=== PATIENT | female | born 1970 | race Caucasian/White ===

== ENCOUNTER → 2018-08-16 14:37 | Outpatient (CLI) | payer OTHER, SELFPAY ==
[2018-08-20 13:45] LABS: HPV Reflexed? NOT INDICATED
== END ==
PROVIDERS: Visit Provider Obstetrics & Gynecology
DX: Z12.4 Encounter for screening for malignant neoplasm of cervix (principal)
CPT/HCPCS: 88175; G0145

== ENCOUNTER → 2018-10-11 08:15 | Outpatient (CLI) | payer OTHER, SELFPAY ==
--- NOTE | 2018-10-11 08:17 | BI_ITS ---
MAMMOGRAPHY - BILATERAL SCREENING REASON FOR EXAM: Female, 48 years old. Routine annual screening examination. PERTINENT HISTORY: Non-contributory. Remote right stereotactic breast biopsy. TECHNIQUE: Digital bilateral breast anoop (3D mammographic acquisition) in the CC and MLO projections. 2-D mediolateral oblique (MLO) and craniocaudad (CC) views of both breasts were obtained. CAD: Full Field Digital Mammography with Computer Added Detection was performed. COMPARISON: Comparison is made with prior outside examination dated September 15, 2016. FINDINGS: Breast Composition: The breasts are heterogeneously dense, which may obscure small masses. There are no dominant masses or suspicious calcifications. A tissue clip marker is seen in the upper lateral portion of the right breast. Stable appearance of the small bilateral axillary lymph nodes. No other significant abnormalities are identified. There has been no significant change since the prior study. BI/SCREENING MAMM (CAD), BILAT IMPRESSION: Stable bilateral screening mammogram. Yearly follow-up mammogram recommended. (A) ASSESSMENT CATEGORY: BIRADS Category 2: Benign. A letter regarding these results will be sent to the patient by the facility within 30 days. Approximately 10% of breast cancers are not detected by mammography. A normal mammogram should not delay biopsy of a clinically suspicious abnormality. [id number] Electronically Signed: Rip Cummings MD at 11:17 EST Tel [phone], Service support ,
== END ==
PROVIDERS: Referring Provider Obstetrics & Gynecology; Visit Provider Obstetrics & Gynecology
DX: Z12.31 Encounter for screening mammogram for malignant neoplasm of breast (principal)
CPT/HCPCS: 77063; 77067

== ENCOUNTER → 2019-11-07 07:37 | Outpatient (CLI) | payer SELFPAY ==
--- NOTE | 2019-11-07 07:41 | BI_ITS ---
MAMMOGRAPHY - BILATERAL SCREENING REASON FOR EXAM: Female, 49 years old. Routine annual screening examination. PERTINENT HISTORY: Non-contributory. Remote right stereotactic breast biopsy. TECHNIQUE: Digital bilateral breast dahlia (3D mammographic acquisition) in the CC and MLO projections. 2-D mediolateral oblique (MLO) and craniocaudad (CC) views of both breasts were obtained. CAD: Full Field Digital Mammography with Computer Added Detection was performed. COMPARISON: Comparison is made with prior examination dated October 11, 2018. FINDINGS: Breast Composition: The breasts are heterogeneously dense, which may obscure small masses. There are no dominant masses or suspicious calcifications. A tissue clip marker is once again seen in the upper lateral aspect of the right breast. Stable small benign-appearing bilateral axillary lymph nodes. No other significant abnormalities are identified. There has been no significant change since the prior study. BI/SCREEN MAMM (CAD) W/DAHLIA BILAT IMPRESSION: Stable bilateral screening mammogram. Yearly follow-up mammogram recommended. (A) ASSESSMENT CATEGORY: BIRADS Category 2: Benign. A letter regarding these results will be sent to the patient by the facility within 30 days. Approximately 10% of breast cancers are not detected by mammography. A normal mammogram should not delay biopsy of a clinically suspicious abnormality. [id number] Electronically Signed: Rip Cummings, at 9:29 EST , Service support ,
== END ==
PROVIDERS: Referring Provider Obstetrics & Gynecology; Visit Provider Obstetrics & Gynecology
DX: Z12.31 Encounter for screening mammogram for malignant neoplasm of breast (principal)
CPT/HCPCS: 77063; 77067

== ENCOUNTER → 2023-01-05 | Outpatient (CLI) | payer OTHER, SELFPAY ==
[2023-01-11 14:39] LABS: HPV APTIMA, High Risk Negative (Negative)
== END | disposition home or self-care (01) ==
PROVIDERS: Visit Provider Nurse Practitioner Women's Health
DX: Z01.419 Encounter for gynecological examination (general) (routine) without abnormal findings (principal)
CPT/HCPCS: 87624; 88175; G0145

== ENCOUNTER → 2023-02-02 | Outpatient (CLI) | payer OTHER, SELFPAY ==
--- NOTE | 2023-02-02 08:28 | BI_ITS ---
MAMMOGRAPHY - BILATERAL SCREENING REASON FOR EXAM: Female, 52 years old. Routine annual screening examination. PERTINENT HISTORY: Non-contributory. Remote right stereotactic breast biopsy. TECHNIQUE: Digital bilateral breast dahlia (3D mammographic acquisition) in the CC and MLO projections. 2-D mediolateral oblique (MLO) and craniocaudad (CC) views of both breasts were obtained. CAD: Full Field Digital Mammography with Computer Added Detection was performed. COMPARISON: Comparison is made with prior study dated November 07, 2019 and October 11, 2018. FINDINGS: Breast Composition: The breasts are heterogeneously dense, which may obscure small masses. There are no dominant masses or suspicious calcifications. A tissue clip marker is once again seen in the upper lateral aspect of the right breast. Stable appearance of the bilateral axillary lymph nodes. No other significant abnormalities are identified. There has been no significant change since the prior study. BI/SCRN MAMM (CAD)W/DAHLIA BILAT IMPRESSION: Stable bilateral screening mammogram. Yearly follow-up mammogram recommended. (A) ASSESSMENT CATEGORY: BIRADS Category 2: Benign. A letter regarding these results will be sent to the patient by the facility within 30 days. Approximately 10% of breast cancers are not detected by mammography. A normal mammogram should not delay biopsy of a clinically suspicious abnormality. [id number] Electronically Signed: Rip Cummings MD at 9:31 EDT ,
== END | disposition home or self-care (01) ==
LOC: OPBI 08:26
PROVIDERS: Referring Provider Nurse Practitioner Women's Health; Visit Provider Nurse Practitioner Women's Health
DX: Z12.31 Encounter for screening mammogram for malignant neoplasm of breast (principal)
CPT/HCPCS: 77063; 77067

== ENCOUNTER 2023-02-23 07:57 | Day surgery (SDC) | payer OTHER, SELFPAY ==
[2023-02-23] VITALS (9 sets, daily range): BP systolic 88–124; BP diastolic 36–63; PULSE 53–68; RESP 16; TEMP 35.8–36.8; O2SAT 97–100; BMI 37.8
[2023-02-23] MEDS: Lactated Ringers 1,000 ML 15 ML IV (08:23)
--- NOTE | 2023-02-23 09:22 | OP.COLON_ITS ---
Patient Name: Ann Marie Cowan Procedure Date: 02/23/2023 8:52 AM Date of : 1970 Age: 52 Procedure: Colonoscopy Indications: Screening for colorectal malignant neoplasm Providers: Andrea Maya MD Medicines: Monitored Anesthesia Care Patient Profile: This is a 52 year old female. Refer to note in patient chart for documentation of history and physical. Last Colonoscopy: none. The patient's first colonoscopy is today. Complications: No immediate complications. Procedure: Pre-Anesthesia Assessment: - Prior to the procedure, a History and Physical was performed, and patient medications and allergies were reviewed. The patient's tolerance of previous anesthesia was also reviewed. The risks and benefits of the procedure and the sedation options and risks were discussed with the patient. All questions were answered, and informed consent was obtained. Prior Anticoagulants: The patient has taken no previous anticoagulant or antiplatelet agents. After reviewing the risks and benefits, the patient was deemed in satisfactory condition to undergo the procedure. After I obtained informed consent, the scope was passed under direct vision. Throughout the procedure, the patient's blood pressure, pulse, and oxygen saturations were monitored continuously. The colonoscope was introduced through the anus and advanced to the cecum, identified by appendiceal orifice and ileocecal valve. The colonoscopy was performed without difficulty. The patient tolerated the procedure well. The quality of the bowel preparation was good. Scope In: 9:00:07 AM Scope Withdrawal Time 0 hours 6 minutes 1 second Scope Out: 9:15:19 AM Total Procedure Duration Time 0 hours 15 minutes 12 seconds Findings: The entire examined colon appeared normal on direct and retroflexion views. Impression: - The entire examined colon is normal on direct and retroflexion views. - No specimens collected. Recommendation: - Discharge patient to home. - Resume previous diet. - Continue present medications. - Repeat colonoscopy in 10 years for screening purposes. Procedure Code(s): --- Professional --- 34920, Colonoscopy, flexible; diagnostic, including collection of specimen(s) by brushing or washing, when performed (separate procedure) Diagnosis Code(s): --- Professional --- Z12.11, Encounter for screening for malignant neoplasm of colon CPT copyright 2017 [employer]. All rights reserved. The codes documented in this report are preliminary and upon marine fireman review may be revised to meet current compliance requirements. Andrea Maya MD 02/23/2023 9:21:53 AM This report has been signed electronically. Number of Addenda: 0 Note Initiated On: 02/23/2023 8:52 AM
--- NOTE | 2023-02-23 09:22 | OP.CCLET_ITS ---
02/23/2023 No Primary Care Physician Re : [facility] This procedure was performed on Thursday, February 23, 2023. My impressions and recommendations are as follows: Impressions : - The entire examined colon is normal on direct and retroflexion views. - No specimens collected. Recommendations : - Discharge patient to home. - Resume previous diet. - Continue present medications. - Repeat colonoscopy in 10 years for screening purposes. My findings are described in the full procedure note, which is enclosed. If I can be of further assistance, please feel free to contact me at Doctor phone number(s): , Work: . Sincerely, Andrea Maya MD 02/23/2023 9:21:53 AM This report has been signed electronically.
--- NOTE | 2023-02-25 08:59 | HP.PCM_ITS ---
HPI - General General Date of Admission: 02/23/23 Date of Service: 02/23/23 HPI Narrative GARRET BERMUDEZ, is a 52 F who presents for screening colonoscopy. She has never had a colonoscopy in the past. She denies abdominal pain or blood in the stool. [facility]LY [facility] Medical History Former smoker Gallstones Plantar fasciitis Home Medications collagen,hydrolysate 500 mg-biotin 800 mcg-ascorbic acid 50 mg capsule 1 cap PO DAILY 02/17/23 [History Last Taken Unknown] Allergy/AdvReac Type Severity Reaction Status Date / Time cephalexin [From Keflex] Allergy Mild itching Verified 02/24/23 08:52 Family History (Updated 02/24/23 @ 09:[address] Jenifer Ronquillo MD) Mother CAD (coronary artery disease) Cancer lung Myocardial infarction Heart disease Rheumatic fever Father Mental disorder schizophrenia Surgical History History of insertion of T-tube into biliary tract Hx of breast biopsy S/P cholecystectomy Social History (Updated 02/24/23 @ 09:[address] 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 [employer] Smoking Status: Former smoker Electronic Cigarette Use: not used how long ago did patient quit smoking: patient smoked socially during her teens alcohol intake: current alcohol intake frequency: a few times a month substance use type: does not use seatbelt use: always do you feel safe at home: Yes additional social history: - [employer] Past Medical/Surgical History Planned Operation Planned Operative Procedure/s: COLONOSCOPY Previous Hospitalizations/Surgeries HX Hospitalizations: No Any Problems With Anesthesia: No You/Your Family Experience Fever (Hyperthermia) With Anes: No Cholinesterase deficiency: No Cardiovascular Hx Hypertension: No HX Edema: No Respiratory Hx Sleep Apnea: No Hx Respiratory Tract Infection/Cold (presently): No Do You Snore Loudly (louder than talking or can be heard): No Do You Often Feel Tired/ Fatigued/ Sleepy Dring Daytime?: No Has Anyone Observed You Stop Breathing During Sleep?: No Result (for STOP score): Negative Smoking Status: Former smoker Neurological Does patient have nerve stimulator: No Reproduction : No Miscellaneous Recent Exposure to Contagious Disease: No Allergies cephalexin [From Keflex] Allergy (Mild, Verified 02/24/23 08:52) itching Discharge Is Pt Admitted From a Intermediate, or a Care Home: No After D/C, Where Do you Plan to Go: Return Home Vital Signs Vital Signs Vital Signs: Weight Weight: 220 lb 7.396 oz Body Mass Index (BMI) 37.8 Physical Exam Const alert and oriented x3 HEENT normocephalic Eyes PERRL Resp normal respiratory effort and normal air movement Cardio regular rate and regular rhythm GI soft to palpation, non-tender and non-distended Extremity normal to inspection Assessment & Plan Assessment/Plan (1) Screen for colon cancer: PLAN: I explained endoscopy in detail to the patient. I explained the risks including but not limited to stroke or heart attack with anesthesia, perforation of the GI tract, bleeding, infection. I explained that any of these could necessitate further emergency surgery. The patient understands and all questions were answered sufficiently. The patient wishes to proceed with procedure. Andrea Maya MD Pager: [facility] [address] [place] [address], [address] [place] [address] Office: Surgery Risks - Colonoscopy Risks Include but are not Limited To: Risks include but are not limited to: Bleeding, perforation requiring further surgery, inability to complete colonoscopy requiring barium enema.
== END 2023-02-23 10:26 | disposition home or self-care (01) ==
LOC: EN 07:58 → AC 07:59
PROVIDERS: PCP Internal Medicine; Referring Provider Internal Medicine; Visit Provider Surgery
PROC: 0DJD8ZZ Inspection of Lower Intestinal Tract, Via Natural or Artificial Opening Endoscopic (ICD-10-PCS; CPT 45378; principal; 2023-02-23 09:10)
DX: Z12.11 Encounter for screening for malignant neoplasm of colon (principal); Z87.891 Personal history of nicotine dependence
CPT/HCPCS: 45378; J7120; J2405

== ENCOUNTER → 2023-02-26 | Outpatient (CLI) | payer OTHER, SELFPAY ==
[2023-02-26 12:16] LABS: Absolute Lymphocyte Count 2.35 X10^3/uL (0.83-4.51); Absolute Neutrophil Count 3.9 X10^3/uL (2.0-7.7); Basophil# 0.08 X10^3/uL; Basophil% 1.2 % (0-1); Eosinophils% 1.4 % (0-5); Hematocrit 40.3 % (37-47); Hemoglobin 12.9 g/dL (12.0-15.0); Lymphocyte # 2.35 X10^3/ul (0.83-4.51); Mean Corpuscular Hgb 30.8 pg (27.0-32.0); Mean Corpuscular Volume 96.2 fL (81-99); Monocyte# 0.45 X10^3/uL; Monocyte% 6.5 % (0-10); NRBC Flagged by Analyzer 0 % (0-5); Neutrophil # 3.92 X10^3/uL (2.7-7.7); Neutrophil % 56.6 % (47-70); Platelet Count 314 K/mm3 (150-450); RBC Distribution Width CV 13.2 % (11.6-14.6); RBC Distribution Width SD 46.6 fl (35.1-43.9); Red Blood Count 4.19 M/mm3 (4.2-5.4); White Blood Count 6.9 K/mm3 (4.4-11.0)
[2023-02-26 12:50] LABS: T3 Total - Triiodothyronine 1.02 ng/mL (0.6-1.81); Vitamin D,25 Hydroxy 30.5 ng/mL
[2023-02-26 13:04] LABS: ALB/GLOB Ratio 0.9 RATIO (0.9-2.4); AST(SGOT) 14 U/L (15-37); Alanine Aminotransfer ALT/SGPT 11 U/L (13-56); Albumin, Serum 3.2 g/dL (3.2-5.0); Alkaline Phosphatase 101 U/L (45-117); Anion Gap 5 (5-15); BUN 11 mg/dL (7-18); Chloride 105 mmol/L (98-107); Cholesterol 172 mg/dL (200); Creatinine, Serum 0.69 mg/dL (0.55-1.02); EST Glomerular Filtration Rate 96 mL/min (>60); Est Glom Filt Rate - Afr Amer 116 mL/min (>60); Globulin 3.5 g/dL (2.2-4.2); Glucose 90 mg/dL (74-106); High Density Lipoprotein 64 mg/dL; Potassium 4.4 mmol/L (3.5-5.1); Protein, Total 6.7 g/dL (6.4-8.2); Sodium Level 140 mmol/L (136-145); T4 Free Direct 0.83 ng/dL (0.76-1.46); Thyroid Stim Hormone (TSH) 0.98 uIU/mL (0.358-3.74); Triglycerides 63 mg/dL; Very Low Density Lipoprotein 13 mg/dL (5-40)
== END | disposition home or self-care (01) ==
LOC: BIMLAB 08:12
PROVIDERS: PCP Internal Medicine; Referring Provider Internal Medicine; Visit Provider Internal Medicine
DX: Z00.00 Encounter for general adult medical examination without abnormal findings (principal); Z13.6 Encounter for screening for cardiovascular disorders; E04.9 Nontoxic goiter, unspecified
CPT/HCPCS: 36415; 80053; 80061; 82306; 84439; 84443; 84480; 85025

== ENCOUNTER → 2023-03-08 | Outpatient (CLI) | payer OTHER, SELFPAY ==
--- NOTE | 2023-03-08 12:20 | US_ITS ---
ACR Level 3 findings have been noted. An addendum which confirms receipt of the report will follow. EXAM: US SOFT TISSUES HEAD AND NECK, THYROID CLINICAL INDICATION: enlarged thyroid enlarged thyroid TECHNIQUE: Greyscale and color doppler imaging was performed of the thyroid gland. COMPARISON: No relevant prior studies available. FINDINGS: LEFT THYROID LOBE: The left lobe of the thyroid gland measures 4.9 x 1.2 x 1.2 cm. It has a homogeneous echotexture. No thyroid nodules are present. RIGHT THYROID LOBE: The right lobe of the thyroid gland measures 5.5 x 1.5 x 1.6 cm. It has homogeneous echotexture. In the lower pole of the right lobe of the thyroid gland, there is a 2.1 x 1.1 x 1.2 cm nodule. This nodule is solid or almost completely solid, hypoechoic, [id number], smoothly marginated and contains no echogenic foci. This nodule is moderately suspicious. Recommend FNA evaluation. In the lower pole of the right lobe of the thyroid gland, there is an 8 mm cystic nodule. This nodule is benign and no FNA or follow-up is necessary. ISTHMUS: The thyroid isthmus measures 2.6 mm. No thyroid nodules are present. US/Thyroid IMPRESSION: 2.1 cm solid nodule in the lower pole of the right lobe of the thyroid gland, moderately suspicious. Recommend fine-needle aspiration evaluation. Electronically Signed: Jair Plunkett MD at 4:16 EDT Reading Location ID and State: [facility] / [place] , Service support ,
== END | disposition home or self-care (01) ==
LOC: US 12:19
PROVIDERS: PCP Internal Medicine; Referring Provider Internal Medicine; Visit Provider Internal Medicine
DX: E04.9 Nontoxic goiter, unspecified (principal)
CPT/HCPCS: 76536

== ENCOUNTER → 2023-03-26 | Outpatient (CLI) | payer OTHER, SELFPAY ==
--- NOTE | 2023-03-25 14:30 | ASPS_PTH ---
PATIENT: GARRET BERMUDEZ LOC: [facility] U#:[id number] AGE/SX: 52/F ROOM: RE03/26/[address]: Dr. Alex Carroll MD : 1970 BED: DIS: 03/26/2023 SPEC #: [id number] RECD: 03/26/23 08:35 STATUS: ABELARDO KELLY #: [id number] JENNIFER: 03/25/23 14:[address]: Alex Carroll DEPT: CYTOLOGY RECD BY: Tyra Jarquin ENTERED: 03/26/23 10:03 SP TYPE: ASPIRATION OTHR DR: Dr. Jenifer Ronquillo MD Tissues: Thyroid gland, NOS Procedures: Special Stain Group II Cytology Other Comments: Dora/Dr. Carroll's office called 03/26/2023, do not send out Afirma. HEADER OPERATION: Right thyroid fine needle aspiration PRE-OP DIAGNOSIS: Right thyroid nodule TISSUE SUBMITTED: Right thyroid x6 slides DIAGNOSIS CYTOLOGY Fine needle aspiration, right thyroid nodule (smears): Benign, consistent with benign follicular/colloid nodule (Troy Category II). See comment. AM:feng 03/26/2023 COMMENT The Troy System for thyroid diagnostic categorization was used in the evaluation of this case. The specimen is adequate for evaluation. CYTOLOGY STUDY Slides are reviewed. CYTOLOGY GROSS Received are six smears labeled with the patient's name and designated per the requisition as right thyroid nodule. Submitted for staining. / feng 03/26/2023 TC:5 CPT: 67252
== END | disposition home or self-care (01) ==
LOC: LABSPEC 08:38
PROVIDERS: PCP Internal Medicine; Referring Provider Surgery; Visit Provider Surgery
DX: E04.1 Nontoxic single thyroid nodule (principal)
CPT/HCPCS: 88161; 88313

== ENCOUNTER → 2023-12-01 | Outpatient (CLI) | payer OTHER, SELFPAY ==
[2023-12-01 20:23] LABS: Bacteria 0 SEEN /hpf (None Seen); Mucous, Urine 0 SEEN /hpf (<or=2+); Squamous Epithelial Cells - UA 0 SEEN /hpf (5-10)
[2023-12-01 20:40] LABS: Color, Urine Yellow (Yellow); Glucose, Dipstick Normal (Normal); Ketone-Dipstick Negative (Negative); Leukocyte Esterase-Dipstick 500 /ul (Negative); Nitrite-Dipstick Negative (Negative); Occult Blood-Urine 250 /ul (Negative); Protein-Dipstick 100 mg/dl (Negative); Urine Bilirubin Dipstick Negative (Negative); Urine Clarity Cloudy (Clear); Urine Urobilinogen Normal (Normal)
[2023-12-01 21:02] LABS: Red Blood Cells-Urine > 100 SEEN /hpf (0-5); White Blood Cells >100 SEEN /hpf (0-5)
== END | disposition home or self-care (01) ==
PROVIDERS: PCP Internal Medicine; Visit Provider Nurse Practitioner Family
DX: N39.0 Urinary tract infection, site not specified (principal)
CPT/HCPCS: 81001; 87086; 87088; 87186

== ENCOUNTER → 2023-12-13 | Outpatient (CLI) | payer OTHER, SELFPAY ==
--- OUTSIDE RECORDS SUMMARY | 2023-12-13 21:01 | XMS RPT_ITS | CCD ---
Author Name Unknown Address [address] [place] [address] Organization [facility] Care Team Providers Care Career Guidance Technician Name Role Phone NO, DOCTOR ON Unavailable Unavailable WILLARD, LOR Unavailable Unavailable WILLARD, LOR Unavailable Unavailable WILLARD, LOR Unavailable Unavailable WILLARD, LOR Unavailable Unavailable WILLARD, LOR Unavailable Unavailable WILLARD, LOR Unavailable Unavailable WILLARD, LOR Unavailable Unavailable NO, DOCTOR ON Unavailable Unavailable WILLARD, LOR Unavailable Unavailable WILLARD, LOR Unavailable Unavailable WILLARD, LOR Unavailable Unavailable NO, DOCTOR ON Unavailable Unavailable NO, DOCTOR ON Unavailable Unavailable Unavailable Primary Care Provider JONNATHAN Saeed Referring Unavailable Allergies Allergy Classification Reported Allergen(s) Allergy Type Date of Onset Reaction(s) Facility (1 source) cephalexin Drug Allergy [facility] Repository (1 source) Cephalexin Drug Allergy 01-05-2023 Itching [facility] Medications Current Medications Medication Drug Class(es) Dates Sig (Normalized) Sig (Original) doxycycline hyclate 100 mg oral tablet (1 source) Tetracycline-clas s Drug Start: 01-05-2023 End: 01-10-2023 take 1 tablet by mouth twice daily doxycycline (VIBRA-TABS) 100 mg tablet Take 1 tablet by mouth twice daily for 5 days. 10 tablet 0 01/05/2023 01/10/2023 Active Problems Active Problems Problem Classification Problem Date Documented Date Episodic/Chronic Biliary tract disease (6 sources) Calculus of gallbladder with acute and chronic cholecystitis without obstruction; Translations: [Cholecystitis, unspecified] Onset: 12-29-2017 Episodic Other skin disorders (1 source) Eruption; Translations: [Rash and other nonspecific skin eruption] Episodic Screening or history of mental health and substance abuse (1 source) Personal history of nicotine dependence; Translations: [Personal history of nicotine dependence] Onset: 02-04-2018 Episodic Past or Other Problems Problem Classification Problem Date Documented Da te Episodic/Chronic Abdominal pain (2 sources) Right upper quadrant pain; Translations: [Right upper quadrant pain] Onset: 12-08-2017 Episodic Intestinal obstruction without hernia (1 source) Ileus, unspecified; Translations: [Ileus, unspecified] Onset: 12-08-2017 Episodic Other and unspecified benign neoplasm (1 source) Benign phyllodes neoplasm of breast; Translations: [Benign neoplasm of unspecified breast] Onset: 08-19-2009 08-19-2009 Episodic Other gastrointestinal disorders (1 source) Peritoneal adhesions (postprocedural) (postinfection); Translations: [Peritoneal adhesions (postprocedural) (postinfection)] Onset: 12-08-2017 Episodic Results Test Name Value Interpretation Reference Range Facil ity Vital Signs Date Time Vital Sign Value Performing Clinician Gloria horner 01-05-2023 11:03-0400 Body temperature 98.49 [degF] Russ Brooke INSTRUMENT ASSEMBLER.MOTEL FRONT DESK ATTENDANT Work Phone: [facility] 01-05-2023 11:03-0400 Body weight 102.06 kg Russ Brooke INSTRUMENT ASSEMBLER.MOTEL FRONT DESK ATTENDANT Work Phone: [facility] 01-05-2023 11:03-0400 Diastolic blood pressure 80 mm[Hg] Russ Brooke INSTRUMENT ASSEMBLER.MOTEL FRONT DESK ATTENDANT Work Phone: [facility] 01-05-2023 11:03-0400 Heart rate 81 /min Russ Brooke INSTRUMENT ASSEMBLER.MOTEL FRONT DESK ATTENDANT Work Phone: [facility] 01-05-2023 11:03-0400 Respiratory rate 18 /min Russ Brooke INSTRUMENT ASSEMBLER.MOTEL FRONT DESK ATTENDANT Work Phone: [facility] 01-05-2023 11:03-0400 SaO2% (BldA) [Mass fraction] 97 % Russ Brooke INSTRUMENT ASSEMBLER.MOTEL FRONT DESK ATTENDANT Work Phone: [facility] 01-05-2023 11:03-0400 Systolic blood pressure 136 mm[Hg] Russ Brooke INSTRUMENT ASSEMBLER.MOTEL FRONT DESK ATTENDANT Work Phone: [facility] Encounters Encounter Date Encounter Type Care Provider Facility Start: 01-05-2023 End: 01-05-2023 ambulatory VESSELIN DIMOV Facility:[facility] Start: 01-05-2023 End: 01-05-2023 Patient encounter procedure Russ Brooke INSTRUMENT ASSEMBLER.MOTEL FRONT DESK ATTENDANT Work Phone: [facility] Procedures Date Procedure Procedure Detail Performing Clinician Start: 02-04-2018 Resection of Gallbla dder, Open Approach DOCTOR NO Start: 12-08-2017 Release Omentum, Percutaneous Endoscopic Approach DOCTOR NO Start: 12-08-2017 Resection of Gallbla dder, Open Approach DOCTOR NO Start: 09-15-2016 Mammography Russ santiago INSTRUMENT ASSEMBLER.MOTEL FRONT DESK ATTENDANT Work Phone: Plan of Treatment Date Care Activity Detail Author Start: 06-04-2023 Influenza vaccination INFLUENZA (Sea son Ended) [facility] Start: 10-04-2022 DEPRESSION ASSESSMENT DEPRESSION ASS ESSMENT [facility] Start: 2022 SHINGRIX VACCINE (1 of 2) SHINGRIX V ACCINE (1 of 2) [facility] Start: 09-15-2017 Mammography MAMMOGRAM [facility] Start: 2017 COLOGUARD (FIT-DNA) COLOGUARD (FIT-D NA) [facility] Start: 2017 Colonoscopy COLONOSCOPY [facility] Start: 2017 COLORECTAL CANCER SCREENING COLORECTAL CANCER SCREENING [facility] Start: [address] COLONOGRAPHY [facility] Start: 2017 DIABETES SCREEN DIABETES SCREEN [facility] Start: 2017 FECAL OCCULT BLOOD FECAL OCCULT BLOO D [facility] Start: 2017 LIPID SCREEN LIPID SCREEN [facility] Start: 2017 SIGMOIDOSCOPY SIGMOIDOSCOPY [facility] Start: 06-27-2014 HPV TESTING HPV TESTING [facility] Start: 06-27-2014 PAP TESTING PAP TESTING [facility] Start: 1991 Urine microalbumin profile DTAP,TDAP ,TD (1 - Tdap) [facility] Start: 1990 HEPATITIS C SCREENING HEPATITIS C SC REENING [facility] Start: 1990 HIV SCREENING HIV SCREENING [facility] Start: 02-14-1973 COVID-19 VACCINE (#1) COVID-19 VACCI NE (#1) [facility] Start: 1972 HEPATITIS B (1 of 3 - 3-dose series) HEPATITIS B (1 of 3 - 3-dose series) [facility] Payers Date Payer Category Payer Unknown [employer] PPO [id number] 2022-Present [phone] [address] [facility] [place] [address] PPO 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 Author Type: Nurse Practitioner Type: Progress Notes Filed: 01/05/2023 11:25 AM Note Text: Subjective HPI Nontoxic-appearing female presents urgent care chief plaint possible shingles. Duration of symptoms 1 week. Associated symptoms erythematous slightly painful rash. States rash does appear to be improving. Was seen by VERIFIER's office today. Directed to be seen in urgent care for possible shingles. Denies any recent medication changes of viral or lifestyle changes. Denies any systemic symptoms. History of chickenpox. Has never been diagnosed with shingles. Denies any fever body aches chills productive cough chest pain shortness of breath pleuritic pain hemoptysis nausea vomiting abdominal pain change in bowel or bladder habits. Past medical history prescription medication use and allergies reviewed. .Patient presents with: Rash: Pt reported (LT) inner thigh rash x1 wk, denied recent vaccinations. PAST MEDICAL HISTORY Diagnosis Date Abnormal mammogram, unspecified benign phylloid tumor abnormal pap 1996 PAST SURGICAL HISTORY Procedure Laterality Date BREAST BIOPSY CORE 07/16/2009 right breast CAUTERY CERVIX CRYOCAUTERY INITIAL/REPEAT fall 1996 cryo/paps neg since STEREOTACTIC CORE BIOPSY 08/09/09 right breast ALLERGIES Cephalexin MEDICATIONS No prescriptions on file. FAMILY HISTORY Problem Relation Age of Onset Heart Mother history of rhuematic fever which lead to heart disease Cancer Mother lung cancer-non smoker None Father at young age to due with mental illness Heart Maternal Grandmother heart failure- Social History Tobacco Use Smoking status: Never Smokeless tobacco: Never Substance Use Topics Alcohol use: No Drug use: No BP 136/80 Pulse 81 Temp 36.9 ?C (98.5 ?F) (Tympanic) Resp 18 Wt 102.1 kg (225 lb) LMP 12/28/2022 SpO2 97% Review of Systems Constitutional: Negative for chills, fever and malaise/fatigue. HENT: Negative for congestion, ear discharge, ear pain, sinus pain and sore throat. Eyes: Negative for blurred vision, pain, discharge and redness. Respiratory: Negative for cough, hemoptysis, sputum production, shortness of breath, wheezing and stridor. Cardiovascular: Negative for chest pain. Gastrointestinal: Negative for abdominal pain, diarrhea, nausea and vomiting. Musculoskeletal: Negative for myalgias. Skin: Positive for itching and rash. Neurological: Negative for dizziness and headaches. Objective Physical Exam Constitutional: General: She is not in acute distress. Appearance: She is not diaphoretic. HENT: Head: Normocephalic. Mouth/Throat: Mouth: Mucous membranes are moist. Pharynx: Oropharynx is clear. No oropharyngeal exudate or posterior oropharyngeal erythema. Eyes: Conjunctiva/sclera: Conjunctivae normal. Pupils: Pupils are equal, round, and reactive to light. Cardiovascular: Rate and Rhythm: Normal rate and regular rhythm. Heart sounds: Normal heart sounds. Pulmonary: Effort: Pulmonary effort is normal. No tachypnea, accessory muscle usage or respiratory distress. Breath sounds: Normal breath sounds. No stridor. Musculoskeletal: Cervical back: Normal range of motion and neck supple. No rigidity or tenderness. Lymphadenopathy: Cervical: No cervical adenopathy. Skin: General: Skin is warm and dry. Comments: Healing rash noted highlighted area. Some remote redness. No pain with palpation. No drainage. Neurological: Mental Status: She is alert and oriented to person, place, and time. ASSESSMENT/PLAN: 1. Rash - ICD9: 782.1, ICD10: R21 Patient diagnosed with rash. Suspicious for shingles. Rash is well-healing. No new vesicles. Some redness noted. Treat as a secondary bacterial infection vs active shingles. Placed on doxycycline. Follow-up PCP 3 to 5 days reevaluation. Red flags for prompt reevaluation discussed. Patient was educated on supportive therapies. Patient was instructed to immediately proceed to emergency room for any new, worsening, or symptoms lasting longer than anticipated. The patient's clinical presentation is otherwise unremarkable at this time. Based on exam and clinical finding, the patient is stable for discharge. Plan of care was discussed with patient. Patient verbalizes understanding and agrees to plan of care. This note was generated using [employer] software. It may contain errors in wording, punctuation, or spelling. Russ Brooke APRN.MOTEL FRONT DESK ATTENDANT [facility] History of Present illness Narrative 01-05-2023 Russ Brooke APRN.[place] - 01/05/2023 11:05 AM EDT Note Date & Type Note Facility 01-05-2023 History of Presen t illness Narrative Images from the original note were not included. Subjective HPI Nontoxic-appearing female presents urgent care chief plaint possible shingles. Duration of symptoms 1 week. Associated symptoms erythematous slightly painful rash. States rash does appear to be improving. Was seen by VERIFIER's office today. Directed to be seen in urgent care for possible shingles. Denies any recent medication changes of viral or lifestyle changes. Denies any systemic symptoms. History of chickenpox. Has never been diagnosed with shingles. Denies any fever body aches chills productive cough chest pain shortness of breath pleuritic pain hemoptysis nausea vomiting abdominal pain change in bowel or bladder habits. Past medical history prescription medication use and allergies reviewed. .Patient presents with: Rash: Pt reported (LT) inner thigh rash x1 wk, denied recent vaccinations. PAST MEDICAL HISTORY Diagnosis Date Abnormal mammogram, unspecified benign phylloid tumor abnormal pap 1996 PAST SURGICAL HISTORY Procedure Laterality Date BREAST BIOPSY CORE 07/16/2009 right breast CAUTERY CERVIX CRYOCAUTERY INITIAL/REPEAT fall 1996 cryo/paps neg since STEREOTACTIC CORE BIOPSY 08/09/09 right breast ALLERGIES Cephalexin MEDICATIONS No prescriptions on file. FAMILY HISTORY Problem Relation Age of Onset Heart Mother history of rhuematic fever which lead to heart disease Cancer Mother lung cancer-non smoker None Father at young age to due with mental illness Heart Maternal Grandmother heart failure- Social History Tobacco Use Smoking status: Never Smokeless tobacco: Never Substance Use Topics Alcohol use: No Drug use: No BP 136/80 Pulse 81 Temp 36.9 C (98.5 F) (Tympanic) Resp 18 Wt 102.1 kg (225 lb) LMP 12/28/2022 SpO2 97% Review of Systems Constitutional: Negative for chills, fever and malaise/fatigue. HENT: Negative for congestion, ear discharge, ear pain, sinus pain and sore throat. Eyes: Negative for blurred vision, pain, discharge and redness. Respiratory: Negative for cough, hemoptysis, sputum production, shortness of breath, wheezing and stridor. Cardiovascular: Negative for chest pain. Gastrointestinal: Negative for abdominal pain, diarrhea, nausea and vomiting. Musculoskeletal: Negative for myalgias. Skin: Positive for itching and rash. Neurological: Negative for dizziness and headaches. Objective Physical Exam Constitutional: General: She is not in acute distress. Appearance: She is not diaphoretic. HENT: Head: Normocephalic. Mouth/Throat: Mouth: Mucous membranes are moist. Pharynx: Oropharynx is clear. No oropharyngeal exudate or posterior oropharyngeal erythema. Eyes: Conjunctiva/sclera: Conjunctivae normal. Pupils: Pupils are equal, round, and reactive to light. Cardiovascular: Rate and Rhythm: Normal rate and regular rhythm. Heart sounds: Normal heart sounds. Pulmonary: Effort: Pulmonary effort is normal. No tachypnea, accessory muscle usage or respiratory distress. Breath sounds: Normal breath sounds. No stridor. Musculoskeletal: Cervical back: Normal range of motion and neck supple. No rigidity or tenderness. Lymphadenopathy: Cervical: No cervical adenopathy. Skin: General: Skin is warm and dry. Comments: Healing rash noted highlighted area. Some remote redness. No pain with palpation. No drainage. Neurological: Mental Status: She is alert and oriented to person, place, and time. ASSESSMENT/PLAN: 1. Rash - ICD9: 782.1, ICD10: R21 Patient diagnosed with rash. Suspicious for shingles. Rash is well-healing. No new vesicles. Some redness noted. Treat as a secondary bacterial infection vs active shingles. Placed on doxycycline. Follow-up PCP 3 to 5 days reevaluation. Red flags for prompt reevaluation discussed. Patient was educated on supportive therapies. Patient was instructed to immediately proceed to emergency room for any new, worsening, or symptoms lasting longer than anticipated. The patient's clinical presentation is otherwise unremarkable at this time. Based on exam and clinical finding, the patient is stable for discharge. Plan of care was discussed with patient. Patient verbalizes understanding and agrees to plan of care. This note was generated using [employer] software. It may contain errors in wording, punctuation, or spelling. Russ Brooke APRN.[place] documented in this encounter [facility] Evaluation note Note Date & Type Note Facility documented in this encounter [facility] Summary Purpose Family History No Family History Records FoundNo Family History Records FoundNo Family History Records Found Advance Directives No Advanced Directives Records FoundNo Advanced Directives Records FoundNo Advanced Directives Records Found Additional Source Comments INFORMATION SOURCE (unrecogn ized section and content) DATE CREATED AUTHOR AUTHOR'S ORGANIZ ATION 03/24/2018 [facility] ([place]) DATE CREATED AUTHOR AUTHOR'S ORGANIZ ATION 01/08/2023 [facility] Source Comments (unrecognize d section and content) In the event this informatio n is protected by the Federal Confidentiality of Alcohol and Drug Abuse Patient Records regulations: The Federal rules restrict any use of the information to criminally investigate or prosecute any alcohol or drug abuse patient.[facility] Reason for Visit (unrecogniz ed section and content) Specialty Diagnoses / Procedures Referred By Leticia t Referred To Contact Internal Medicine / [facility] Diagnoses Shingles possible shingles Procedures OFFICE/OUTPATIENT ESTABLISHED MOD MDM 30-39 MIN EST SAME DAY Jonnathan Kirby V, MD [address] [place] [address] [facility] [address] [place] [address] Referral ID Status Reason Start Date Expiration Date Visits Re quested Visits Authorized [id number] Closed 01/05/2023 10/03/2023 1 1 FOR RECORDS PERTAINING TO PATIENTS WHO ARE OR HAVE BEEN ENROLLED IN A CHEMICAL DEPENDENCY/SUBSTANCEABUSE PROGRAM, SOME INFORMATION MAY BE OMITTED. This clinical summary was aggregated from multiple sources. Caution should be exercised in using it in the provision of clinical care. This summary normalizes information from multiple sources, and as a consequence, information in this document may materially change the coding, format and clinical context of patient data. In addition, data may be omitted in some cases. CLINICAL DECISIONS SHOULD BE BASED ON THE PRIMARY CLINICAL RECORDS. [employer] [facility]. provides no warranty or guarantee of the accuracy or completeness of information in this document.
== END | disposition home or self-care (01) ==
LOC: LABSPEC 16:00
PROVIDERS: PCP Internal Medicine; Referring Provider Physician Assistant; Visit Provider Physician Assistant
DX: N39.0 Urinary tract infection, site not specified (principal)
CPT/HCPCS: 87086; 87088

== ENCOUNTER → 2024-02-09 | Outpatient (CLI) | payer OTHER, SELFPAY ==
--- NOTE | 2024-02-09 10:09 | BI_ITS ---
MAMMOGRAPHY - BILATERAL SCREENING REASON FOR EXAM: Female, 53 years old. Routine annual screening examination. PERTINENT HISTORY: Non-contributory. Prior right stereotactic breast biopsy. TECHNIQUE: Digital bilateral breast dahlia (3D mammographic acquisition) in the CC and MLO projections. 2-D mediolateral oblique (MLO) and craniocaudad (CC) views of both breasts were obtained. CAD: Full Field Digital Mammography with Computer Added Detection was performed. COMPARISON: Comparison is made with prior study dated February 02, 2023 and November 07, 2019. FINDINGS: Breast Composition: The breasts are heterogeneously dense, which may obscure small masses. There is an 8.7 mm x 10 mm well-defined nodule in the upper lateral aspect of the right breast. Correlation with ultrasound is recommended. A tissue clip marker is once again seen in the upper lateral aspect of the right breast. Stable appearance of the small bilateral axillary lymph nodes. No other significant abnormalities are identified. BI/SCRN MAMM (CAD)W/DAHLIA BILAT IMPRESSION: 8.7 mm x 10 mm well-defined nodule in the upper lateral aspect of the right breast. Correlation with ultrasound is recommended. ASSESSMENT CATEGORY: BIRADS Category 0: Incomplete. Need additional imaging evaluation. A letter regarding these results will be sent to the patient by the facility within 30 days. Approximately 10% of breast cancers are not detected by mammography. A normal mammogram should not delay biopsy of a clinically suspicious abnormality. [id number] Electronically Signed: Rip Cummings MD at 11:40 EDT ,
== END | disposition home or self-care (01) ==
LOC: OPBI 10:09
PROVIDERS: PCP Internal Medicine; Referring Provider Nurse Practitioner Women's Health; Visit Provider Nurse Practitioner Women's Health
DX: Z12.31 Encounter for screening mammogram for malignant neoplasm of breast (principal)
CPT/HCPCS: 77063; 77067

== ENCOUNTER → 2024-02-15 | Outpatient (CLI) | payer OTHER, SELFPAY ==
--- NOTE | 2024-02-15 08:28 | US_ITS ---
STUDY: ULTRASOUND BREAST - RIGHT REASON FOR EXAM: Female, 53 years old. Abnormal screening mammogram. TECHNIQUE: Axial and longitudinal images of the RIGHT breast were performed with a high resolution ultrasound transducer. # OF IMAGES: 8 COMPARISON: Comparison is made with prior mammogram dated February 09, 2024. FINDINGS: RIGHT Breast: The mammographic abnormality corresponds to a 7 mm x 8 mm x 6 mm hypoechoic nodule with slightly irregular margins at the 9:00 position of the breast at 9 cm from the nipple. Biopsy recommended. US/Breast Limited Unilateral IMPRESSION: The mammographic abnormality corresponds to a 7 mm x 8 mm x 6 mm hypoechoic nodule with slightly irregular margins at the 9:00 position of the breast at 9 cm from nipple. Biopsy recommended. ASSESSMENT CATEGORY: BIRADS Category 4: Suspicious - Biopsy Should Be Considered. A letter regarding these results will be sent to the patient by the facility within 30 days. Electronically Signed: Rip Cummings MD at 13:30 EDT ,
== END | disposition home or self-care (01) ==
LOC: OPUS 08:27
PROVIDERS: PCP Internal Medicine; Referring Provider Nurse Practitioner Women's Health; Visit Provider Nurse Practitioner Women's Health
DX: N63.11 Unspecified lump in the right breast, upper outer quadrant (principal)
CPT/HCPCS: 76642

== ENCOUNTER → 2024-02-21 | Outpatient (CLI) | payer OTHER, SELFPAY ==
--- NOTE | 2024-02-21 14:10 | BRBX_PTH ---
PATIENT: GARRET BERMUDEZ LOC: [facility] U#:[id number] AGE/SX: 53/F ROOM: RE02/21/[address]: Dr. Andrea Maya MD : 1970 BED: DIS: 02/21/2024 SPEC #: [id number] RECD: 02/22/24 15:17 STATUS: ABELARDO REEric #: [id number] JENNIFER: 02/21/24 14:[address]: Andrea Maya DEPT: SURGICAL PATHOLOGY RECD BY: Radha Adan ENTERED: 02/22/24 10:27 SP TYPE: BREAST BX OTHR DR: Dr. Jenifer Ronquillo MD Tissues: Right breast, NOS Procedures: Surgery Specimen Level IV HEADER OPERATION: Right breast biopsy PRE-OP DIAGNOSIS: Right breast mass TISSUE SUBMITTED: Right breast tissue MICROSCOPIC DIAGNOSIS Right breast mass, core biopsy: Fibroadenoma. Focal banal microcalcifications. AM/mr 02/23/2024 COMMENT Ischemic Time: 1 minute Fixation Time: 5 hours MICROSCOPIC DESCRIPTION Slides are reviewed. GROSS DESCRIPTION Received in fixative is one container labeled with the patient's name and designated Right breast. The specimen consists of multiple irregular fragments of galeana-white soft tissue measuring in aggregate 1.0 x 0.5 x 0.1cm. The specimen is totally submitted in one cassette. AM/mr 02/22/2024 TC:5 CPT:33141
== END | disposition home or self-care (01) ==
LOC: LABSPEC 15:24
PROVIDERS: PCP Internal Medicine; Referring Provider Surgery; Visit Provider Surgery
DX: N63.10 Unspecified lump in the right breast, unspecified quadrant (principal)
CPT/HCPCS: 88305

== ENCOUNTER → 2024-02-29 | Outpatient (CLI) | payer OTHER, SELFPAY ==
[2024-02-29 12:56] LABS: Vitamin D,25 Hydroxy 35.8 ng/mL
[2024-02-29 13:08] LABS: AST(SGOT) 18 U/L (15-37); Alanine Aminotransfer ALT/SGPT 12 U/L (13-56); Albumin, Serum 3.6 g/dL (3.2-5.0); Alkaline Phosphatase 110 U/L (45-117); Anion Gap 9 (5-15); BUN 7 mg/dL (7-18); Calcium,Total 9.6 mg/dL (8.5-10.1); Chloride 103 mmol/L (98-107); EST Glomerular Filtration Rate 94 mL/min (>60); Est Glom Filt Rate - Afr Amer 113 mL/min (>60); Globulin 3.7 g/dL (2.2-4.2); Glucose 98 mg/dL (74-106); Potassium 4.7 mmol/L (3.5-5.1); Protein, Total 7.3 g/dL (6.4-8.2); Sodium Level 138 mmol/L (136-145); Thyroid Stim Hormone (TSH) 1.17 uIU/mL (0.358-3.74)
== END | disposition home or self-care (01) ==
LOC: BIMLAB 08:28
PROVIDERS: PCP Internal Medicine; Visit Provider Internal Medicine
DX: Z00.00 Encounter for general adult medical examination without abnormal findings (principal); E04.9 Nontoxic goiter, unspecified; E55.9 Vitamin D deficiency, unspecified
CPT/HCPCS: 36415; 80053; 82306; 84443

== ENCOUNTER → 2024-03-07 | Outpatient (CLI) | payer OTHER, SELFPAY ==
--- NOTE | 2024-03-07 11:47 | US_ITS ---
STUDY: THYROID ULTRASOUND REASON FOR EXAM: Female, 53 years old. thyroid nodule TECHNIQUE: Ultrasound evaluation of the thyroid was performed with real-time and static garcia-scale imaging. COMPARISON: 03/08/2023 FINDINGS: RIGHT LOBE: The right lobe of the thyroid gland measures 5.4 x 1.8 x 1.9 cm. There is a homogeneous echotexture. There is a stable 2 cm solid nodule, and a stable 1 cm cyst. LEFT LOBE: The left lobe of the thyroid gland measures 4.8 x 1.4 x 1.2 cm. There is a homogeneous echotexture. There are no demonstrated solid, cystic or complex lesions. ISTHMUS: The isthmus measures 2 millimeters. The regional lymph nodes are normal. US/Thyroid IMPRESSION: Stable enlarged right lobe of the thyroid gland with stable 2 cm nodule. Previous ultrasound recommended biopsy of this, if this has not been performed, then another FNA this nodule is recommended. If it has been previously biopsied and shown to be negative another year follow-up is recommended. Electronically Signed: Julio Soto MD at 15:29 EDT ,
== END | disposition home or self-care (01) ==
LOC: US 11:47
PROVIDERS: PCP Internal Medicine; Visit Provider Surgery
DX: E04.1 Nontoxic single thyroid nodule (principal)
CPT/HCPCS: 76536

== ENCOUNTER → 2024-08-07 | Outpatient (CLI) | payer OTHER, SELFPAY ==
--- NOTE | 2024-08-07 08:48 | BI_ITS ---
MAMMOGRAPHY - UNILATERAL DIAGNOSTIC: RIGHT BREAST REASON FOR EXAM: Female, 53 years old. 6 month follow-up for ultrasound-guided left breast biopsy. PERTINENT HISTORY: Non-contributory. TECHNIQUE: Digital unilateral breast anoop (3D mammographic acquisition) in the CC and MLO projections. 2-D mediolateral oblique (MLO) and craniocaudad (CC) views of both breasts were obtained. CAD: Full Field Digital Mammography with Computer Added Detection was performed. COMPARISON: Comparison is made with prior study February 09, 2024 and February 02, 2023. FINDINGS: Breast Composition: The breasts are heterogeneously dense, which may obscure small masses. There are no dominant masses or suspicious calcifications. A tissue clip marker is seen within an 8 mm well-defined nodule in the upper lateral aspect of the right breast. The recent site of biopsy. The nodular density has decreased in size as compared to prior study. No other significant abnormalities are identified. There has been no significant change since the prior study. BI/DIAG MAMM W/CAD, UNILAT IMPRESSION: Stable unilateral diagnostic mammogram. One year follow-up mammogram recommended. (A) ASSESSMENT CATEGORY: BIRADS Category 2: Benign. A letter regarding these results will be sent to the patient by the facility within 30 days. Approximately 10% of breast cancers are not detected by mammography. A normal mammogram should not delay biopsy of a clinically suspicious abnormality. Electronically Signed: Rip Cummings MD at 10:35 EST ,
--- NOTE | 2024-08-07 08:48 | US_ITS ---
STUDY: ULTRASOUND BREAST - RIGHT REASON FOR EXAM: Female, 53 years old. Six-month follow-up for ultrasound guided right breast biopsy. TECHNIQUE: Axial and longitudinal images of the RIGHT breast were performed with a high resolution ultrasound transducer. # OF IMAGES: 14 COMPARISON: Comparison is made with prior sonogram dated February 15, 2024 and prior sonogram done earlier in the day. FINDINGS: RIGHT Breast: Stable appearance of the hypoechoic nodule measuring 7 mm x 8 mm x 5 mm at the 9:00 position of the breast at 9 cm from the nipple. A tissue clip marker is seen within. US/Breast Limited Unilateral IMPRESSION: Stable appearance of the nodule at the 9:00 position of the breast at 9 cm from the nipple. A tissue clip marker is seen within. ASSESSMENT CATEGORY: BIRADS Category 2: Benign. A letter regarding these results will be sent to the patient by the facility within 30 days. Electronically Signed: Rip Cummings MD at 11:55 EST ,
== END | disposition home or self-care (01) ==
PROVIDERS: PCP Internal Medicine; Referring Provider Surgery; Visit Provider Surgery
DX: N63.11 Unspecified lump in the right breast, upper outer quadrant (principal)
CPT/HCPCS: 76642; 77061; 77065; G0279

== ENCOUNTER → 2025-01-31 | Outpatient (CLI) | payer OTHER, SELFPAY ==
[2025-01-31 13:02] LABS: Absolute Lymphocyte Count 2.01 X10^3/uL (0.83-4.51); Absolute Neutrophil Count 3.3 X10^3/uL (2.0-7.7); Basophil# 0.06 X10^3/uL; Eosinophil# 0.15 X10^3/uL; Eosinophils% 2.4 % (0-5); Hematocrit 41.1 % (37-47); Hemoglobin 13.4 g/dL (12.0-15.0); Lymphocyte # 2.01 X10^3/ul (0.83-4.51); Lymphocyte % 32.6 % (19-41); Mean Corp Hgb Conc 32.6 g/dL (32-36); Mean Corpuscular Hgb 30.5 pg (27.0-32.0); Mean Corpuscular Volume 93.4 fL (81-99); Mean Platelet Vol. 10.4 fl (6.2-12.0); Monocyte# 0.65 X10^3/uL; Monocyte% 10.5 % (0-10); NRBC Flagged by Analyzer 0 % (0-5); Neutrophil # 3.28 X10^3/uL (2.7-7.7); Neutrophil % 53.2 % (47-70); Platelet Count 294 K/mm3 (150-450); RBC Distribution Width CV 12.9 % (11.6-14.6); RBC Distribution Width SD 44.4 fl (35.1-43.9); White Blood Count 6.2 K/mm3 (4.4-11.0)
[2025-01-31 13:46] LABS: ALB/GLOB Ratio 1.4 RATIO (0.9-2.4); AST(SGOT) 32 U/L (<=31); Alanine Aminotransfer ALT/SGPT 15 U/L (<=34); Albumin, Serum 4.2 g/dL (3.5-5.0); Alkaline Phosphatase 120 U/L (35-104); Anion Gap 12 (5-15); BUN 11 mg/dL (4-19); BUN/Creat Ratio 16.6 RATIO (10-20); Calcium,Total 9.6 mg/dL (7.6-11.0); Carbon Dioxide 25.8 mmol/L (21.0-32.0); Chloride 103 mmol/L (98-108); Cholesterol 195 mg/dL (<=200); Creatinine, Serum 0.66 mg/dL (0.70-1.20); EST Glomerular Filtration Rate 106 (>60); Glucose 95 mg/dL (70-99); High Density Lipoprotein 58 mg/dL; Low Density Lipoprotein Calc. 123 mg/dL; Potassium 4.3 mmol/L (3.3-5.1); Protein, Total 7.2 g/dL (5.9-8.4); Sodium Level 140 mmol/L (133-145); Total Bilirubin 0.25 mg/dL (0.00-1.30); Triglycerides 70 mg/dL; Very Low Density Lipoprotein 14 mg/dL (5-40); Vitamin D,25 Hydroxy 26.8 ng/mL (30-100); cholesterol:hdl ratio screen 3.36
== END | disposition home or self-care (01) ==
LOC: BIMLAB 08:49
PROVIDERS: PCP Internal Medicine; Referring Provider Internal Medicine; Visit Provider Internal Medicine
DX: Z00.00 Encounter for general adult medical examination without abnormal findings (principal); Z13.6 Encounter for screening for cardiovascular disorders; E55.9 Vitamin D deficiency, unspecified; E04.1 Nontoxic single thyroid nodule
CPT/HCPCS: 36415; 80053; 80061; 82306; 84443; 85025

== ENCOUNTER → 2025-02-09 | Outpatient (CLI) | payer OTHER, SELFPAY ==
--- NOTE | 2025-02-09 08:20 | BI_ITS ---
EXAM: SCRN MAMM (CAD)W/DAHLIA BILAT 02/09/2025 CLINICAL HISTORY: F, Age 54 y/o , SCREENING FOR BREAST CANCER TECHNIQUE: Bilateral screening digital breast tomosynthesis with 2D and 3D images. Computer aided detection. COMPARISON: Prior exam(s) dated mammogram 08/07/2024; ultrasound 02/15/2024; mammogram 02/09/2024, 02/02/2023. FINDINGS: TISSUE DENSITY: The breast tissue is composed of scattered area of fibroglandular density. Bilateral Breast Mammographic Findings: There is a mass with an associated biopsy marker clip in the upper-outer right breast at middle depth has corresponding benign pathology of fibroadenoma. No significant masses, calcifications or other abnormalities are identified. BI/SCRN MAMM (CAD)W/DAHLIA BILAT IMPRESSION: Right Breast: BIRADS 2 BENIGN FINDING. Left Breast: BIRADS 1 NEGATIVE. OVERALL FINAL ASSESSMENT: BIRADS 2 BENIGN FINDING. RECOMMENDATION: Routine annual follow-up in 1 Year A letter with findings and recommendations will be mailed to the patient. Reading Location: [id number]
== END | disposition home or self-care (01) ==
LOC: OPBI 08:13
PROVIDERS: PCP Internal Medicine; Referring Provider Nurse Practitioner Women's Health; Visit Provider Nurse Practitioner Women's Health
DX: Z12.31 Encounter for screening mammogram for malignant neoplasm of breast (principal)
CPT/HCPCS: 77063; 77067

== ENCOUNTER → 2025-03-15 | Outpatient (CLI) | payer OTHER, SELFPAY ==
--- NOTE | 2025-03-15 13:56 | US_ITS ---
PROCEDURE: THYROID 03/15/2025 REASON FOR EXAM: THYROID NODULE TECHNIQUE: High-frequency thyroid ultrasound, including grayscale and color-flow images. REFERENCE LINKS: TI-RADS Chart: [email or web address] TI-RADS Calculator Tool with Reference Images: [email or web address] COMPARISON: Prior study dated March 07, 2024. FINDINGS: Right thyroid lobe size: 4.5 cm x 1.5 cm x 1.4 cm Left thyroid lobe size: 4.6 cm 1.2 cm 1 cm Isthmus: 0.2 cm cm Background parenchymal echotexture is homogeneous. Nodules: . Lobe: Right, Location: Inferior pole, Size: 1.1 cm x 0.8 cm x 0.7 cm, Stability: Stable Composition: Cystic or mostly cystic (+0) Echogenicity: Anechoic (+0) Margin: Smooth (+0) Shape: Wider than tall (+0) Echogenic Foci: None (+0) TI-RADS: 1 . Lobe: Right, Location: Inferior pole, Size: 2 cm x 1.3 cm 1.3 cm, Stability: Stable Composition: Solid or almost completely solid (+2) Echogenicity: Hypoechoic (+2) Margin: Smooth (+0) Shape: Wider than tall (+0) Echogenic Foci: None (+0) TI-RADS: <2 = TR 1 * 2 = TR 2 * 3 = TR 3 * 4-6 = TR 4 * >6 = TR 5 US/Thyroid IMPRESSION: Stable examination. RECOMMENDATION: Based on most suspicious nodule. Nodule size = largest diameter Only evaluate nodule if =>5 mm. Growth > 20% in 2 dimensions = worsening. Follow up to 4 nodules. Recommend biopsy for no more than 2 nodules. Reading Location: [id number]
== END | disposition home or self-care (01) ==
LOC: US 13:47
PROVIDERS: PCP Internal Medicine; Referring Provider Surgery; Visit Provider Surgery
DX: E04.1 Nontoxic single thyroid nodule (principal)
CPT/HCPCS: 76536